=== PATIENT | female | born 1970 | race Hispanic/Latino ===

== ENCOUNTER 2020-12-03 20:12 | Emergency (ER) | payer BC ==
[~2020-12-03] VITALS: Ht 152.4 cm; Wt 63.5 kg
[2020-12-03 20:42] LABS: BASOPHILS # (AUTO) 0.1 (0.0-0.1); BASOPHILS % 0.7 % (0.0-1.0); EOSINOPHILS # (AUTO) 0.3 (0.0-0.4); EOSINOPHILS % 2.1 % (0.0-6.0); HEMATOCRIT 30.1 % (34.2-44.1); HEMOGLOBIN 9.7 g/dL (12.0-16.0); LYMPHOCYTES # (AUTO) 4.5 (1.0-3.2); LYMPHOCYTES % 33.4 % (18.0-39.1); MEAN CORPUSCULAR HEMOGLOBIN 25.9 pg (28-32); MEAN CORPUSCULAR HGB CONC 32.2 g/dL (31-35); MEAN CORPUSCULAR VOLUME 80.5 fL (81-99); MONOCYTES # (AUTO) 1.1 (0.2-0.8); MONOCYTES % 8.4 % (4.4-11.3); NEUTROPHILS # (AUTO) 7.5 (2.1-6.9); NEUTROPHILS % 55.2 % (38.7-80.0); PLATELET COUNT 553 x10e3/uL (140-360); RED BLOOD COUNT 3.74 x10e6/uL (3.6-5.1)
[2020-12-03] MEDS ORDERED: METOPROLOL TARTRATE INJ 1 MG/ML VIAL ONE (20:42)
[2020-12-03 20:53] LABS: INR 0.88; PROTHROMBIN TIME 12.4 seconds (11.9-14.5)
[2020-12-03 20:54] LABS: PARTIAL THROMBOPLASTIN TIME 28.6 seconds (23.8-35.5)
[2020-12-03 21:03] LABS: ALANINE AMINOTRANSFERASE 8 IU/L (0-55); ALKALINE PHOSPHATASE 80 IU/L (40-150); ANION GAP 18.2 mmol/L (8-16); BLOOD UREA NITROGEN 8 mg/dL (7-26); BUN/CREATININE RATIO 10 (6-25); CALCIUM 8.9 mg/dL (8.4-10.2); CARBON DIOXIDE 19 mmol/L (22-29); CHLORIDE 104 mmol/L (98-107); CREATINE KINASE 94 IU/L (29-168); CREATININE, SERUM 0.77 mg/dL (0.57-1.11); EST GLOMERULAR FILTRATION RATE > 60 ML/MIN (60-); GLUCOSE 136 mg/dL (74-118); POTASSIUM 3.2 mmol/L (3.5-5.1); SODIUM 138 mmol/L (136-145)
[2020-12-03] MEDS ORDERED: METOPROLOL TARTRATE INJ 1 MG/ML VIAL IV ONE (21:15)
[2020-12-03 21:20] LABS: CLARITY,URINE CLEAR (CLEAR); COLOR,URINE YELLOW (YELLOW)
[2020-12-03 21:21] LABS: AMPHETAMINES SCREEN,URINE NEGATIVE (NEGATIVE); BENZODIAZEPINES SCREEN,URINE NEGATIVE (NEGATIVE); KETONES,URINE NEGATIVE (NEGATIVE); LEUKOCYTE ESTERASE ,URINE NEGATIVE (NEGATIVE); NITRITE,URINE NEGATIVE (NEGATIVE); PHENCYCLIDINE SCREEN,URINE NEGATIVE (NEGATIVE); PROTEIN,URINE DIPSTICK NEGATIVE (NEGATIVE); URINE UROBILINOGEN 0.2 mg/dL (0.2 - 1)
[2020-12-03 21:26] LABS: FREE THYROXINE INDEX 1.9836 (1.4-3.8); THYROID STIMULATING HORMONE 1.405 uIU/mL (0.350-4.940)
[2020-12-03] MEDS ORDERED: IOPAMIDOL 370 MG/ML 200 ML INFUS..BTL INJ ONE (21:28)
[2020-12-03] MEDS ORDERED: SODIUM CHLORIDE 0.9% 50ML 50 ML ONE (21:28)
[2020-12-03 21:32] LABS: BACTERIA,URINE FEW /HPF; EPITHELIAL CELLS,URINE MODERATE /LPF; RBC,URINE 0-5 /HPF (0-5)
[2020-12-03] MEDS ORDERED: LORAZEPAM INJ 2 MG/ML VIAL IV ONE (22:30)
== END 2020-12-04 00:30 | disposition home or self-care (01) ==
LOC: ER 20:23
DX: F41.9 Anxiety disorder, unspecified (principal); R06.02 Shortness of breath; I10 Essential (primary) hypertension; R94.31 Abnormal electrocardiogram [ECG] [EKG]
CPT/HCPCS: 36415; 71260; 80053; 80307; 81001; 82550; 82553; 84436; 84443; 84479; 84484; 84702; 85025; 85610; 85730; 99284; J2060; Q9967; U0002

== ENCOUNTER 2020-12-05 04:26 | Emergency (ER) | payer BC ==
[~2020-12-05] VITALS: Ht 152.4 cm; Wt 63.5 kg
== END 2020-12-05 05:42 | disposition home or self-care (01) ==
LOC: ER 05:27
DX: F41.9 Anxiety disorder, unspecified (principal); I10 Essential (primary) hypertension; Z88.6 Allergy status to analgesic agent; Z86.2 Personal history of diseases of the blood and blood-forming organs and certain disorders involving the immune mechanism
CPT/HCPCS: 93005; 99282